=== PATIENT | female | born 2000 | race Two or more races ===

== ENCOUNTER 2024-10-09 10:16 | Outpatient (AMB) | payer BC, MEDICAID, SELFPAY ==
--- NOTE | 2024-10-09 10:19 | OBCLNT_ITS ---
Vital Signs 10/09/24 10:31 Height 1.65 m Height Method Measured Weight 69.57 kg Weight Measurement Method Standing Scale BMI 25.5 BP 106/71 Blood Pressure Source Automatic Cuff Blood Pressure Location Left Upper Arm Position Sitting Respiration 14 Pulse 76 Pulse Source Monitor Temp 97.8 F Temp Source Oral Pulse Oximetry (%) 98 Oxygen Delivery Method Room Air Allergies/Home Meds Allergies & Medications Allergies No Known Allergies Allergy (Verified 10/09/24 10:33) Medication Reconciliation vit no.133-ferrous fumarate 28 mg-folic acid 800 mcg tablet () 1 tab PO DAILY 02/26/22 [History Confirmed 10/09/24] Intake Visit Data Collection New Patient or Established: Established Patient (seen at [facility] within 3 years) Reason for Visit:: transfer care Seen by Clinical Staff ONLY (RN/MA): No [employer] Required: No Do You Feel Safe at Home: Yes Authorities Contacted: N/A PCP or OBGYN visit in last 3 months: Yes Hx Now: Yes Are you currently on any form of Control: No Last menstrual period: 04/08/24 Pain Present Currently: No Pain Scale Used: Joyner-Curiel/Numerical Pain scale:: 0 Smoking Status Smoking Status: Former smoker Questionnaires Covid-19 Vaccine Questionnaire Has patient been vacinated for Covid-19 Have you been vacinated for Covid-19: No PHQ-9 PHQ-2 Over the last 2 weeks, how often have you been bothered by any of the following problems? 1. Little interest or pleasure in doing things: not at all 2. Feeling down, depressed, or hopeless: not at all Total score: 0 PHQ-9 3. Trouble falling or staying asleep, or sleeping too much: Not at all 4. Feeling tired or having little energy: Not at all 5. Poor appetite or overeating: Not at all 6. Feeling bad about yourself - or that you are a failure or have let yourself or your family down: Not at all 7. Trouble concentrating on things, such as reading the newspaper or watching television: Not at all 8. Moving or speaking so slowly that other people could have noticed? - Or the opposite - being so fidgety or restless that you have been moving around a lot more than usual: not at all 9. Thoughts that you would be better off or of hurting yourself in some way: Not at all Total score: 0 Source: Developed by Drs. Joshua Swenson, Lenora Dye, Bradley Clarke and colleagues, with an educational nancy from [employer]. Depression screen completed yes Social History Living Situation History Lives With: Family Housing: Apartment Tobacco History Smoking Status: Former smoker Second Hand Smoke Exposure: Yes Alcohol History Alcohol Intake: Never Substance Use History Substance Use: marijuana Domestic Abuse History Do You Feel Safe at Home: Yes Past Medical History Past Medical History Have you ever been diagnosed with any of the following: Neurological Problems Cerebrovascular Accident (CVA): No Transient Ischemic Attacks (TIA): No Dementia: No Alzheimer's Disease: No Parkinson's Disease: No Brain Tumor: No Meningitis: No Seizures: No Cardiology Problems Myocardial Infarction: No Cardiac Arrhythmia: No Atrial Fibrillation: No Angina: No Congestive Heart Failure: No Respiratory Problems Chronic Obstructive Pulmonary Disease (COPD): No Asthma: No Bronchitis: No Emphysema: No Hx Cough: No Cough: No Wheezing: No Chest Deformities: No Smoking: Yes Smoking Cessation Counseling: No Smoking Exposure: Yes Tobacco Use: No Stomache/Intestinal Problems Liver Cancer: No Hepatitis: No Cirrhosis: No Pancreatic Cancer: No Pancreatitis: No Celiac Disease: No Genital/Urinary Problems Chronic Kidney Disease: No Renal Disease: No Reproductive Problems Breast Cancer: No Endometriosis: No Fibroids: No Genital Herpes: No Gonorrhea: No Pelvic Inflammatory Disease: No Musculoskeletal Problems Muscular Dystrophy: No Myasthenia Gravis: No Marfan's Syndrome: No Bone Cancer: No Head,Eye,Nose,Throat Problems Cataracts: No Glaucoma: No Blind: No Retinal Detachment: No Macular Degeneration: No Chronic Ear Infections: No Deafness: No Eye Prosthesis: No Endocrine Problems Diabetes Mellitus Type 1: No Diabetes Mellitus Type 2: No (grandfather) Chama's Syndrome: No Blood Problems Anemia: Yes Leukemia: No Hemophilia: No Thalassemia: No Sickle Cell Disease: No Clotting Problems: No Psychologic Problems Schizophrenia: No Recreational Drug Use: No Bipolar Disorder: No Depression: No Anxiety: No Other Problems Hospitalization: Yes Falls: No Blood Transfusions: No Blood Transfusion Reaction: No Anesthesia Reactions: No Chemotherapy: No MRSA: No Chicken Pox: No Cancer: No Surgical History Angioplasty: No Bariatric Surgery: No Breast Surgery: No Thyroidectomy: No Additional Surgical History: tosils removal History of Present Illness HPI Narrative 24-year-old 2 para 1 for [address] OB visit at [facility] Patient has been followed at [facility] for care. Her last menses was April 08, 2024. Sure dates. Patient had a positive test May 11, 2024. EDC is January 11, 2025. Patient is 26 weeks 5 days. Reports good movement. Denies any signs or symptoms of labor. Denies any discomforts of the at this time. No bleeding. No cramping. Patient denies social habits. She had her tonsils out. And denies any past or current medical history. Patient plans to sign for release of records at [facility] so we can get her panel and her ultrasound results her last maternal- medicine appointment was September [address] Jane. Thus far patient has not had any problems with OB Initial Visit OB Flowsheet OB Flowsheet Initial Weight: Not Recorded Date -?-?-?-?-?-?-?-?-?-?-?-?- EGA Weight Edema CTX Effacement BP Fundal ht Pres Dilation Effacement Station Visit Note Alb Glu FHR Mov 10/09/24 -?-?-?-?-?-?-?-?-?-?-?-?- 26w 2d 69.57 kg absent absent 106/71 26 unknown 24-year-old 2 1 here for initial OB appointment. Patient reports movement. Denies signs or sympt oms of labor. Patient is a transfer of care from [facility]. She we will going get her records. I ordered third trimester labs today. And will do a follow-up ultrasound for growth at 32 weeks. Patient is taking vitamins. I discussed labor precautions with patient and I discussed diet and weight and regular exercise. Patient had +1 protein today in the urine and +1 leuk but nitrites were negative so I advised her to drink cranberry juice and lots of fluids 24-year-old 2 1 here for ini tial OB appointment. Patient reports movement. Denies signs or symptoms of labor. Patient is a transfer of care from [facility]. 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 I ordered third trimester labs today. And will do a follow-up ultrasound for growth at 32 weeks. Patient is taking vitamins. I discussed labor precautions with patient and I discussed diet and weight and regular exercise. Patient had +1 protein today in the urine and +1 leuk but nitrites were negative so I advised her to drink cranberry juice and lots of fluids 156 active Menstrual History Menstrual reliability: definite Flow: heavy Menstrual regularity: regular Monthly: Yes Age at menarche: 14 On control pills at conception: No Date of positive home test: 05/11/24 Associated symptoms (LMP): Denies amenorrhea, nausea, vomiting, fatigue, breast tenderness, urinary frequency, irritability, bloating or other OB History : 2 Para: 1 # of Living Children: 1 Delivery History 1st : Child's name: LEONOR date: 02/27/22 sex: male Delivery type: vaginal Delivery complications: NONE History of depression before or after : No Infection History & Risk Evaluation History of STDs: chlamydia (2021) HIV risk evaluation: low risk Hepatitis B risk evaluation: low risk Patient or partner has history of Genital Herpes: No Genetic Screening & History Genetic Screening/Teratology Counseling - Includes patient, baby's father, or anyone in either family with: 1. Patient's age 35 years or older as of estimated date of delivery: No 2. Thalassemia (Gibraltarian, Belarusian, Mediterranean, or Background); MCV less than 80: No 3. Neural Tube Defect (Meningomyelocele, Spina Bifida, or Anencephaly): No 4. Congenital Heart Defect: No 5. Down Syndrome: No 6. Vlad-Sachs (Ashkenazi Latter Day, Cajun, Albanian Polish): No 7. Veronica Disease (Ashkenazi Latter Day): No 8. Familial Dysautonomia (Ashkenazi Latter Day): No 9. Sickle Cell Disease or Trait (): No 10. Hemophilia or other blood disorders: No 11. Muscular Dystrophy: No 12. Cystic Fibrosis: No 13. Hoang's Chorea: No 14. Mental Retardation/Autism: No 15. Other inherited genetic or chromosomal disorder: No 16. Maternal Metabolic Disorder (EG,TYPE 1 Diabetes, PKU): No 17. Patient or baby's father had a child with defects not listed above: No 18. Recurrent loss or a stillbirth: No 19. Medications (including supplements, vitamins, herbs or otc drugs)/illicit/recreational drugs/alcohol since last menstrual period: No 20. Any other: No Infection History 1. Live with someone with TB or exposed to TB: No 2. Rash or viral illness since last menstrual period: No 4. History of STD: chlamydia (2021) Other (see comments) Source: [employer] Review of Systems Review of Systems Systems Reviewed: All systems reviewed, normal except as documented Constitutional Constitutional: Denies fatigue Gastrointestinal Gastrointestinal: Denies bloating, Denies nausea and Denies vomiting Genitourinary Genitourinary: Denies amenorrhea and Denies urinary frequency Psychiatric Psychiatric: Denies irritability Endocrine Endocrine: Denies fatigue Exam General Limitations: no limitations General Appearance: alert, in no apparent distress, comfortable, cooperative, healthy appearing, well developed and well groomed Head Head exam: atraumatic, normocephalic and normal inspection Chest Chest inspection: Present normal inspection and symmetric chest wall rise Resp Respiratory exam: Present normal lung sounds bilaterally Card Cardiovascular exam: Present regular rate, normal rhythm and normal heart sounds Abdominal Abdominal exam: Present soft ([id number]) and normal bowel sounds Psych Psychiatric exam: Present normal affect and normal mood Assessment & Plan Diagnosis / Problem List (1) Encounter for supervision of normal in multigravida in second trimester: Status: Acute Plan Order third trimester labs. Follow-up ultrasound at 32 weeks for growth. Medical release of records for records and ultrasound. Discussed diet and weight with patient increased regular exercise. Increase fluids discussed labor precautions. Return in 3 weeks OB check Additional Plan Follow Up: 3 Weeks (OBC in 3 week) Office Procedures OB Clinic LOC & Office Proc's Nursing/Assessment Patient Status: Established Patient OB Clinic Nursing Assessment: Medication Reconciliation, Update PMH in EMR and Vital Signs OB Clinic Coordination of Care: Complex Care and Chronic Disease 1-5, Consent,records obtained, informed consent, Education Simp Pt/Fam, Lab and Imaging orders and Staff clarify orders Special Needs: Heart tones Miscellaneous Interventions: Blood/Urine Collection Established Patient Charge Established Patient Point Assignment: 160 Established Patient Point Charge: EP Level 5 (160-above)
[2024-10-09 10:31] VITALS: BP 106/71; PULSE 76; RESP 14; TEMP 36.6; O2SAT 98; BMI 25.5
== END 2024-10-09 11:15 | disposition home or self-care (01) ==
PROVIDERS: Supervising Provider Advanced Practice Midwife; Visit Provider Advanced Practice Midwife
DX: Z34.82 Encounter for supervision of other normal pregnancy, second trimester (principal); Z3A.26 26 weeks gestation of pregnancy
CPT/HCPCS: 99215; G0463

== ENCOUNTER 2024-11-06 10:52 | Outpatient (AMB) | payer BC, MEDICAID, SELFPAY ==
[2024-11-06 11:12] VITALS: BP 107/67; PULSE 82; RESP 16; TEMP 36.5; O2SAT 98; BMI 26.6
--- NOTE | 2024-11-06 11:12 | AMB.OBVISIT ---
Vital Signs 11/06/24 11:12 Height 1.65 m Height Method Stated Weight 72.631 kg Weight Measurement Method Standing Scale BMI 26.6 BP 107/67 Blood Pressure Source Automatic Cuff Blood Pressure Location Left Upper Arm Position Sitting Respiration 16 Pulse 82 Pulse Source Monitor Temp 97.7 F Temp Source Oral Pulse Oximetry (%) 98 Oxygen Delivery Method Room Air Allergies/Home Meds Allergies & Medications Allergies No Known Allergies Allergy (Verified 11/06/24 11:13) Medication Reconciliation vit no.133-ferrous fumarate 28 mg-folic acid 800 mcg tablet () 1 tab PO DAILY 02/26/22 [History Confirmed 11/06/24] Intake Visit Data Collection New Patient or Established: Established Patient (seen at [facility] within 3 years) Reason for Visit:: CARE Seen by Clinical Staff ONLY (RN/MA): No Shake Loader Required: No Do You Feel Safe at Home: Yes Authorities Contacted: N/A PCP or OBGYN visit in last 3 months: Yes Hx Now: Yes Are you currently on any form of Control: No Pain Present Currently: No Pain Scale Used: Joyner-Curiel/Numerical Pain scale:: 0 Smoking Status Smoking Status: Former smoker Questionnaires Covid-19 Vaccine Questionnaire Has patient been vacinated for Covid-19 Have you been vacinated for Covid-19: No PHQ-9 PHQ-2 Over the last 2 weeks, how often have you been bothered by any of the following problems? 1. Little interest or pleasure in doing things: not at all 2. Feeling down, depressed, or hopeless: not at all Total score: 0 PHQ-9 3. Trouble falling or staying asleep, or sleeping too much: Not at all 4. Feeling tired or having little energy: Not at all 5. Poor appetite or overeating: Not at all 6. Feeling bad about yourself - or that you are a failure or have let yourself or your family down: Not at all 7. Trouble concentrating on things, such as reading the newspaper or watching television: Not at all 8. Moving or speaking so slowly that other people could have noticed? - Or the opposite - being so fidgety or restless that you have been moving around a lot more than usual: not at all 9. Thoughts that you would be better off or of hurting yourself in some way: Not at all Total score: 0 Source: Developed by Drs. Joshua Swenson, Lenora Dye, Bradley Clarke and colleagues, with an educational nancy from [employer]. 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 Patient reports movement. Denies signs or symptoms of labor. Patient is a transfer of care from [facility]. She we will going get her records. I ordered third trimester labs today. And will do a follow-up ultrasound for growth at 32 weeks. Patient is taking vitamins. I discussed labor precautions with patient and I discussed diet and weight and regular exercise. Patient had +1 protein today in the urine and +1 leuk but nitrites were negative so I advised her to drink cranberry juice and lots of fluids 24-year-old 2 1 here for initial OB appointment. Patient reports movement. Denies signs or symptoms of labor. Patient is a transfer of care from [facility]. 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 I ordered third trimester labs today. And will do a follow-up ultrasound for growth at 32 weeks. Patient is taking vitamins. I discussed labor precautions with patient and I discussed diet and weight and regular exercise. Patient had +1 protein today in the urine and +1 leuk but nitrites were negative so I advised her to drink cranberry juice and lots of fluids 156 active 11/06/24 <del>?</del> 30w 2d 72.631 kg absent absent 107/67 30 unknown Reports good movement. Denies any contractions. No leaking, no bleeding. Tdap given today. Schedule ultrasound for growth. I reviewed diet and weight gain with patient and talked about kick count. Return in 2 weeks OB check. 156 active FABIAN Calculator Estimated Delivery Date Method Current WG Current Estimate 01/13/25 LMP (Certain) 30w 2d Notes Visit Date: 11/06/24 Last Updated by: Ashely Araiza CNM 24yo . LMP 04/03/24. EDC 01/08/25. A+,abs-,rpr;;nr, rub imm. HBSAG-,HIV-,GC/CT-,NIPT and carrier screen- Office Procedures OB Clinic LOC & Office Proc's Nursing/Assessment Patient Status: Established Patient OB Clinic Nursing Assessment: Medication Reconciliation, Update PMH in EMR and Vital Signs OB Clinic Coordination of Care: Complex Care and Chronic Disease 1-5, Consent,records obtained, informed consent, Education Simp Pt/Fam, Lab and Imaging orders, Results/Orders obtained and Staff clarify orders Special Needs: Heart tones Miscellaneous Interventions: Blood/Urine Collection Established Patient Charge Established Patient Point Assignment: 165 Established Patient Point Charge: EP Level 5 (160-above) Injection/Vaccine Admin Admin 1st Vaccine: Yes Immunizations diphth,pertus(acell),tetanus 2.5 Lf unit-8 mcg-5 Lf/0.5mL IM syringe Performing Provider: Ashely Araiza CNM Performing Location: [facility] Administered by: Chelsea Rodriguez MA on 11/06/24 11:35 Dose Route Admin Location Dispensed Lot Number Expiration Date [facility] [employer]sman 0.5 mL IM Right Deltoid 0.5 mL [id number] 12/06/26 33789-231-20 [employer] VIS Given Date VIS Provided VIS Publication Date 11/06/24 Single Vaccine 24 Eligibility Eligibility Date Funding Source Public Non-[facility] Assessment & Plan Diagnosis / Problem List (1) Encounter for supervision of normal in multigravida in second trimester: Status: Acute Plan Tdap today. Discussed diet and weight. Reviewed labor precautions with patient. Discussed kick count with patient. Ultrasound for growth. And return in 2 weeks OB check Additional Plan Follow Up: 2 Weeks (obc)
[2024-11-06 12:51] LABS: Bilirubin,Urine Clinitek Negative (Negative); Blood,Urine Clinitek Negative (Negative); Glucose, Urine Clinitek Negative (Negative); Ketones,Urine Clinitek Negative (Negative); Leukocyte Esterase,Urine Clin 3+ (Negative); Nitrite,Urine Clinitek Negative (Negative); Protein,Urine Clinitek Negative (Neg - Trace); Specific Gravity,Urine Clin 1.025 (1.001-1.030)
== END 2024-11-06 12:01 | disposition home or self-care (01) ==
LOC: HODSOBC 10:52
PROVIDERS: PCP Advanced Practice Midwife; Referring Provider Advanced Practice Midwife; Supervising Provider Advanced Practice Midwife; Visit Provider Advanced Practice Midwife
DX: Z34.83 Encounter for supervision of other normal pregnancy, third trimester (principal); Z3A.30 30 weeks gestation of pregnancy; Z23 Encounter for immunization; Z87.891 Personal history of nicotine dependence
CPT/HCPCS: 81001; 90471; 90715; 99215; G0463

== ENCOUNTER 2024-11-19 11:13 | Outpatient (AMB) | payer BC, MEDICAID, SELFPAY ==
[2024-11-19 11:26] VITALS: BP 110/72; PULSE 83; RESP 17; TEMP 36.5; O2SAT 98; BMI 29.5
--- NOTE | 2024-11-19 11:26 | AMB.OBVISIT ---
Vital Signs 11/19/24 11:26 Height 1.57 m Height Method Stated Weight 73.198 kg Weight Measurement Method Standing Scale BMI 29.5 BP 110/72 Blood Pressure Source Automatic Cuff Blood Pressure Location Right Upper Arm Position Sitting Respiration 17 Pulse 83 Pulse Source Monitor Temp 97.7 F Temp Source Temporal Artery Scan Pulse Oximetry (%) 98 Oxygen Delivery Method Room Air Allergies/Home Meds Allergies & Medications Allergies No Known Allergies Allergy (Verified 11/19/24 11:28) Medication Reconciliation ferrous sulfate 325 mg (65 mg iron) tablet 325 mg PO BID #60 tabs 11/19/24 [Rx] vit no.133-ferrous fumarate 28 mg-folic acid 800 mcg tablet () 1 tab PO DAILY #60 tabs 11/19/24 [Rx] Intake Visit Data Collection New Patient or Established: Established Patient (seen at [facility] within 3 years) Reason for Visit:: OBC Seen by Clinical Staff ONLY (RN/MA): No 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 1. Little interest or pleasure in doing things: not at all PHQ-9 3. Trouble falling or staying asleep, or sleeping too much: Not at all 4. Feeling tired or having little energy: Not at all 5. Poor appetite or overeating: Not at all 6. Feeling bad about yourself - or that you are a failure or have let yourself or your family down: Not at all 7. Trouble concentrating on things, such as reading the newspaper or watching television: Not at all 8. Moving or speaking so slowly that other people could have noticed? - Or the opposite - being so fidgety or restless that you have been moving around a lot more than usual: not at all 9. Thoughts that you would be better off or of hurting yourself in some way: Not at all If you checked off any problems, how difficult have these problems made it for you to do your work, take care of things at home, or get along with other people?: not difficult at all Source: Developed by Drs. Joshua Swenson, Lenora Dye, Bradley Clarke and colleagues, with an educational nancy from [employer]. 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 Patient reports movement. Denies signs or symptoms of labor. Patient is a transfer of care from [facility]. She we will going get her records. I ordered third trimester labs today. And will do a follow-up ultrasound for growth at 32 weeks. Patient is taking vitamins. I discussed labor precautions with patient and I discussed diet and weight and regular exercise. Patient had +1 protein today in the urine and +1 leuk but nitrites were negative so I advised her to drink cranberry juice and lots of fluids 24-year-old 2 1 here for initial OB appointment. Patient reports movement. Denies signs or symptoms of labor. Patient is a transfer of care from [facility]. 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 I ordered third trimester labs today. And will do a follow-up ultrasound for growth at 32 weeks. Patient is taking vitamins. I discussed labor precautions with patient and I discussed diet and weight and regular exercise. Patient had +1 protein today in the urine and +1 leuk but nitrites were negative so I advised her to drink cranberry juice and lots of fluids 11/06/24 <del>?</del> 30w 2d 72.631 kg 107/67 absent unknown 30 156 active Reports good movement. Denies any contractions. No leaking, no bleeding. Tdap given today. Schedule ultrasound for growth. I reviewed diet and weight gain with patient and talked about kick count. Return in 2 weeks OB check. 11/19/24 <del>?</del> 32w 1d 73.198 kg 110/72 absent cephalic 32 135 active No OB complaints, fetus active, . compliant with PNV discuss PTL precaution, discuss FKC biD. Increase fluid, continue PNV, RTC 1 week, sono for growth pending, start iron bid FABIAN Calculator Estimated Delivery Date Method Current WG Current Estimate 01/13/25 LMP (Certain) 32w 1d Notes Visit Date: 11/19/24 Last Updated by: Ashely Araiza CNM #rd tri labs WNL. 04/24 Visit Date: 11/06/24 Last Updated by: Ashely Araiza CNM 24yo . LMP 04/03/24. EDC 01/08/25. A+,abs-,rpr;;nr, rub imm. HBSAG-,HIV-,GC/CT-,NIPT and carrier screen- Office Procedures OB Clinic LOC & Office Proc's Nursing/Assessment Patient Status: Established Patient OB Clinic Nursing Assessment: Medication Reconciliation, Update PMH in EMR and Vital Signs OB Clinic Coordination of Care: Complex Care and Chronic Disease 1-5, Consent,records obtained, informed consent, Education Simp Pt/Fam and Staff clarify orders Special Needs: Heart tones Established Patient Charge Established Patient Point Assignment: 115 Established Patient Point Charge: EP Level 3 (80-115) Assessment & Plan Diagnosis / Problem List (1) Encounter for supervision of normal in multigravida in third trimester: Status: Acute Plan start iron bid and iron food. continue PNV, increase fluid. discuss PTL precaution, fkc bid. sono for growth pending. rtcm2 week obc Additional Plan Follow Up: 2 Weeks (obc)
== END 2024-11-19 11:46 | disposition home or self-care (01) ==
LOC: HODSOBC 11:13
PROVIDERS: PCP Advanced Practice Midwife; Referring Provider Advanced Practice Midwife; Supervising Provider Advanced Practice Midwife; Visit Provider Advanced Practice Midwife
DX: Z34.83 Encounter for supervision of other normal pregnancy, third trimester (principal); Z3A.32 32 weeks gestation of pregnancy; Z87.891 Personal history of nicotine dependence
CPT/HCPCS: 99213; G0463

== ENCOUNTER 2024-12-09 12:57 | Outpatient (AMB) | payer BC, MEDICAID, SELFPAY ==
[2024-12-09 13:28] VITALS: BP 116/80; PULSE 74; RESP 17; TEMP 36.7; O2SAT 98; BMI 30.5
--- NOTE | 2024-12-09 13:28 | OBCLNT_ITS ---
Vital Signs 12/09/24 13:28 Height 1.57 m Height Method Stated Weight 75.353 kg Weight Measurement Method Standing Scale BMI 30.5 BP 116/80 Blood Pressure Source Automatic Cuff Blood Pressure Location Right Upper Arm Position Sitting Respiration 17 Pulse 74 Pulse Source Monitor Temp 98.0 F Temp Source Temporal Artery Scan Pulse Oximetry (%) 98 Oxygen Delivery Method Room Air Allergies/Home Meds Allergies & Medications Allergies No Known Allergies Allergy (Verified 12/09/24 13:29) Medication Reconciliation ferrous sulfate 325 mg (65 mg iron) tablet 325 mg PO BID #60 tabs 11/19/24 [Rx Confirmed 12/09/24] vit no.133-ferrous fumarate 28 mg-folic acid 800 mcg tablet () 1 tab PO DAILY #60 tabs 11/19/24 [Rx Confirmed 12/09/24] Intake Visit Data Collection New Patient or Established: Established Patient (seen at [facility] within 3 years) Reason for Visit:: OBC / GBS Seen by Clinical Staff ONLY (RN/MA): No Data Integrity Analyst Required: No Do You Feel Safe at Home: Yes Authorities Contacted: N/A PCP or OBGYN visit in last 3 months: Yes Date of Last PCP or OBGYN visit: 11/16/24 Hx Now: Yes Are you currently on any form of Control: No Pain Present Currently: Yes Pain Location: Groin Pain Scale Used: Joyner-Curiel/Numerical Pain scale:: 7 Smoking Status Smoking Status: Former smoker Questionnaires Covid-19 Vaccine Questionnaire Has patient been vacinated for Covid-19 Have you been vacinated for Covid-19: No PHQ-9 PHQ-2 Over the last 2 weeks, how often have you been bothered by any of the following problems? 1. Little interest or pleasure in doing things: not at all 2. Feeling down, depressed, or hopeless: not at all Total score: 0 PHQ-9 3. Trouble falling or staying asleep, or sleeping too much: Not at all 4. Feeling tired or having little energy: Not at all 5. Poor appetite or overeating: Not at all 6. Feeling bad about yourself - or that you are a failure or have let yourself or your family down: Not at all 7. Trouble concentrating on things, such as reading the newspaper or watching television: Not at all 8. Moving or speaking so slowly that other people could have noticed? - Or the opposite - being so fidgety or restless that you have been moving around a lot more than usual: not at all 9. Thoughts that you would be better off or of hurting yourself in some way: Not at all Total score: 0 If you checked off any problems, how difficult have these problems made it for you to do your work, take care of things at home, or get along with other people?: not difficult at all Source: Developed by Drs. Joshua Swenson, Lenora Dye, Bradley Clarke and colleagues, with an educational nancy from [employer]. 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: Past Medical History Past Medical History: No Hx Neurological Disorders, No Hx Breast Cancer, No Hx Cardiac Disorders, No Hx Cancer, Yes Hx Blood Disorders, Yes Hx Anemia, No Hx Gastrointestinal Disorders, No Hx Renal Disease, No Hx Diabetes Mellitus Type 1 and No Hx Diabetes Mellitus Type 2 (grandfather) Care OB Visit Log OB Flowsheet Initial Weight: Not Recorded Date -?-?-?-?-?-?-?-?-?-?-?-?- EGA Weight BP Alb Glu CTX Pres Fundal ht FHR Mov Dilation Station Effacement Hx Notes Visit Note 10/09/24 -?-?-?-?-?-?-?-?-?-?-?-?- 27w 5d 69.57 kg 106/71 absent unknown 26 156 active 24-year-old 2 1 here for initial OB appointment. Patient reports movement. Denies signs or symptoms of labor. Patient is a transfer of care from [facility]. She we will going get her records. I ordered third trimester labs today. And will do a follow-up ultrasound for growth at 32 weeks. Patient is taking vitamins. I discussed labor precautions with patient and I discussed diet and weight and regular exercise. Patient had +1 protein today in the urine and +1 leuk but nitrites were negative so I advised her to drink cranberry juice and lots of fluids 24-year-old 2 1 here for jacob shukla OB appointment. Patient reports movement. Denies signs or symptoms of labor. Patient is a transfer of care from [facility]. 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 I ordered third trimester labs today. And will do a follow-up ultrasound for growth at 32 weeks. Patient is taking vitamins. I discussed labor precautions with patient and I discussed diet and weight and regular exercise. Patient had +1 protein today in the urine and +1 leuk but nitrites were negative so I advised her to drink cranberry juice and lots of fluids 11/06/24 -?-?-?-?-?-?-?-?-?-?-?-?- 31w 5d 72.631 kg 107/67 absent unknown 30 156 active Reports good movement. Denies any contractions. No leaking, no bleeding. Tdap given today. Schedule ultrasound for growth. I reviewed diet and weight gain with patient and talked about kick count. Return in 2 weeks OB check. 11/19/24 -?-?-?-?-?-?-?-?-?-?-?-?- 33w 4d 73.198 kg 110/72 absent cephalic 32 135 active No OB complaints, fetus active, . compliant with PNV discuss PTL precaution, discuss FKC biD. Increase fluid, continue PNV, RTC 1 week, sono for growth pending, start iron bid 12/09/24 -?-?-?-?-?-?-?-?-?-?-?-?- 36w 3d 75.353 kg 116/80 occasional cephalic 36 135 active occ uc and pressure. denies bleeding, UC and LOF. fetus active GBS today. discuss labor precaution, fkc bid discuss ER precaution. rtc for OBC FABIAN Calculator Estimated Delivery Date Method Current WG Current Estimate 01/03/25 Ultrasound #1 36w 3d Other Estimates 01/13/25 LMP (Certain) 35w 0d Notes Visit Date: 12/09/24 Last Updated by: Ashely Araiza CNM 24 yo . LMP 04/03/24. EDC 12/29/24. A+,abs-, rpr;;nr, rub imm, hbsag-, hiv-, hc-, GC/CT-, 1 hr gtt wnl Visit Date: 11/19/24 Last Updated by: Ashely Araiza CNM #rd tri labs WNL. 04/24 Visit Date: 11/06/24 Last Updated by: Ashely Araiza CNM 24yo . LMP 04/03/24. EDC 01/08/25. A+,abs-,rpr;;nr, rub imm. HBSAG-,HIV-,GC/CT-,NIPT and carrier screen- Office Procedures OB Clinic LOC & Office Proc's Nursing/Assessment Patient Status: Established Patient OB Clinic Nursing Assessment: Medication Reconciliation, Update PMH in EMR and Vital Signs OB Clinic Coordination of Care: Complex Care and Chronic Disease 1-5, Consent,records obtained, informed consent, Education Simp Pt/Fam, Lab and Imaging orders and Staff clarify orders Special Needs: Heart tones Established Patient Charge Established Patient Point Assignment: 130 Established Patient Point Charge: EP Level 4 (120-155) Assessment & Plan Diagnosis / Problem List (1) Encounter for supervision of normal in multigravida in third trimester: Status: Acute Plan GBS today, discuss labor precaution, fkc bid, discuss s/s of labor and when to go to hospital. discuss ER precaution Additional Plan Follow Up: 2 Weeks (obc)
== END 2024-12-09 14:27 | disposition home or self-care (01) ==
LOC: HODSOBC 12:57
PROVIDERS: PCP Advanced Practice Midwife; Referring Provider Advanced Practice Midwife; Supervising Provider Advanced Practice Midwife; Visit Provider Advanced Practice Midwife
DX: Z34.83 Encounter for supervision of other normal pregnancy, third trimester (principal); Z3A.36 36 weeks gestation of pregnancy; Z36.85 Encounter for antenatal screening for Streptococcus B; Z87.891 Personal history of nicotine dependence
CPT/HCPCS: 99214; G0463

== ENCOUNTER 2024-12-31 15:26 | Outpatient (AMB) | payer BC, MEDICAID, SELFPAY ==
[2024-12-31 15:31] VITALS: BP 119/81; PULSE 107; RESP 17; TEMP 36.6; O2SAT 98; BMI 31.8
--- NOTE | 2024-12-31 15:31 | AMB.OBVISIT ---
Vital Signs 12/31/24 15:31 Height 1.57 m Height Method Measured Weight 78.528 kg Weight Measurement Method Standing Scale BMI 31.8 BP 119/81 Blood Pressure Source Automatic Cuff Blood Pressure Location Right Upper Arm Position Sitting Respiration 17 Pulse 107 H Pulse Source Monitor Temp 97.9 F Temp Source Temporal Artery Scan Pulse Oximetry (%) 98 Oxygen Delivery Method Room Air Allergies/Home Meds Allergies & Medications Allergies No Known Allergies Allergy (Verified 12/31/24 15:32) Medication Reconciliation ferrous sulfate 325 mg (65 mg iron) tablet 325 mg PO BID #60 tabs 11/19/24 [Rx Confirmed 12/31/24] vit no.133-ferrous fumarate 28 mg-folic acid 800 mcg tablet () 1 tab PO DAILY #60 tabs 11/19/24 [Rx Confirmed 12/31/24] fluconazole 150 mg tablet 150 mg PO QDAY 3 days #3 tabs 12/31/24 [Rx] Intake Visit Data Collection New Patient or Established: Established Patient (seen at [facility] within 3 years) Reason for Visit:: OBC Consent obtained for Telemed Visit: No Seen by Clinical Staff ONLY (RN/MA): No Associate Producer Required: No Do You Feel Safe at Home: Yes Authorities Contacted: N/A PCP or OBGYN visit in last 3 months: Yes Date of Last PCP or OBGYN visit: 12/09/24 Hx Now: Yes Are you currently on any form of Control: No Pain Present Currently: Yes Pain scale:: 6 Smoking Status Smoking Status: Former smoker Questionnaires Covid-19 Vaccine Questionnaire Has patient been vacinated for Covid-19 Have you been vacinated for Covid-19: No PHQ-9 PHQ-2 Over the last 2 weeks, how often have you been bothered by any of the following problems? 1. Little interest or pleasure in doing things: not at all PHQ-9 8. Moving or speaking so slowly that other people could have noticed? - Or the opposite - being so fidgety or restless that you have been moving around a lot more than usual: not at all Source: Developed by Drs. Joshua Swenson, Lenora Dye, Bradley Clarke and colleagues, with an educational nancy from [employer]. 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 Patient reports movement. Denies signs or symptoms of labor. Patient is a transfer of care from [facility]. She we will going get her records. I ordered third trimester labs today. And will do a follow-up ultrasound for growth at 32 weeks. Patient is taking vitamins. I discussed labor precautions with patient and I discussed diet and weight and regular exercise. Patient had +1 protein today in the urine and +1 leuk but nitrites were negative so I advised her to drink cranberry juice and lots of fluids 24-year-old 2 1 here for initial OB appointment. Patient reports movement. Denies signs or symptoms of labor. Patient is a transfer of care from [facility]. 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 I ordered third trimester labs today. And will do a follow-up ultrasound for growth at 32 weeks. Patient is taking vitamins. I discussed labor precautions with patient and I discussed diet and weight and regular exercise. Patient had +1 protein today in the urine and +1 leuk but nitrites were negative so I advised her to drink cranberry juice and lots of fluids 11/06/24 <del>?</del> 30w 6d 72.631 kg 107/67 absent unknown 30 156 active Reports good movement. Denies any contractions. No leaking, no bleeding. Tdap given today. Schedule ultrasound for growth. I reviewed diet and weight gain with patient and talked about kick count. Return in 2 weeks OB check. 11/19/24 <del>?</del> 32w 5d 73.198 kg 110/72 absent cephalic 32 135 active No OB complaints, fetus active, . compliant with PNV discuss PTL precaution, discuss FKC biD. Increase fluid, continue PNV, RTC 1 week, sono for growth pending, start iron bid 12/09/24 <del>?</del> 35w 4d 75.353 kg 116/80 occasional cephalic 36 135 active occ uc and pressure. denies bleeding, UC and LOF. fetus active GBS today. discuss labor precaution, fkc bid discuss ER precaution. rtc for OBC 12/31/24 <del>?</del> 38w 5d 78.528 kg 119/81 occasional cephalic 38 135 active fetus active, denies uc, no leaking or bleeding. SVE: LCP/soft, + yeast. Discuss dates with patient, IOL 01/10/25 GBS-, + yeast. diflucan 150 x3, discuss labor precaution, fkc bid, increase fluids. IOL 01/10/25, fkc bid FABIAN Calculator Estimated Delivery Date Method Current WG Current Estimate 01/09/25 Ultrasound #2 38w 5d Other Estimates 01/08/25 LMP (Certain) 38w 6d 01/08/25 Ultrasound #1 38w 6d Notes Visit Date: 12/09/24 Last Updated by: Ashely Araiza CNM 24 yo . LMP 04/03/24. EDC 12/29/24. A+,abs-, rpr;;nr, rub imm, hbsag-, hiv-, hc-, GC/CT-, 1 hr gtt wnl Visit Date: 11/19/24 Last Updated by: Ashely Araiza CNM #rd tri labs WNL. 04/24 Visit Date: 11/06/24 Last Updated by: Ashely Araiza CNM 24yo . LMP 04/03/24. EDC 01/08/25. A+,abs-,rpr;;nr, rub imm. HBSAG-,HIV-,GC/CT-,NIPT and carrier screen- Office Procedures OB Clinic LOC & Office Proc's Nursing/Assessment Patient Status: Established Patient OB Clinic Nursing Assessment: Medication Reconciliation, Update PMH in EMR and Vital Signs OB Clinic Coordination of Care: Complex Care and Chronic Disease 1-5, Education Complex Pt/Fam, Consent,records obtained, informed consent, Education Simp Pt/Fam and Staff clarify orders Special Needs: Heart tones Established Patient Charge Established Patient Point Assignment: 135 Established Patient Point Charge: EP Level 4 (120-155) Assessment & Plan Diagnosis / Problem List (1) Chronic candidiasis of vulva and vagina: Status: Acute (2) Encounter for supervision of normal in multigravida in third trimester: Status: Acute Plan Discussed GBS and new swab results. Diflucan 150 p.o. daily x 3 days for positive yeast infection. Discussed labor precautions and kick counts twice a day. Increase fluids and comfort measures for prodromal labor. Schedule induction of labor January 10, 2025 Additional Plan Follow Up: 1 Week (obc)
== END 2024-12-31 15:53 | disposition home or self-care (01) ==
LOC: HODSOBC 15:26
PROVIDERS: Supervising Provider Advanced Practice Midwife; Visit Provider Advanced Practice Midwife
DX: O09.893 Supervision of other high risk pregnancies, third trimester (principal); O98.813 Other maternal infectious and parasitic diseases complicating pregnancy, third trimester; B37.32 Chronic candidiasis of vulva and vagina; Z3A.38 38 weeks gestation of pregnancy
CPT/HCPCS: 99214; G0463

== ENCOUNTER 2025-01-05 13:02 | Observation (INO) | payer BC, MEDICAID, SELFPAY ==
[2025-01-05] VITALS (9 sets, daily range): BP systolic 104–105; BP diastolic 71–74; PULSE 86–114; RESP 18–97; TEMP 37.1; O2SAT 97–99; BMI 31.2
== END 2025-01-05 17:00 | disposition home or self-care (01) ==
PROVIDERS: Admitting Provider Obstetrics & Gynecology; PCP Advanced Practice Midwife; Visit Provider Obstetrics & Gynecology
DX: Z34.83 Encounter for supervision of other normal pregnancy, third trimester (principal); Z3A.39 39 weeks gestation of pregnancy
CPT/HCPCS: 59025; 59899

== ENCOUNTER 2025-01-05 22:18 | Inpatient (IN) | payer BC, MEDICAID, SELFPAY ==
[2025-01-05] VITALS (22 sets, daily range): BP systolic 102–174; BP diastolic 54–85; PULSE 85–116; RESP 18–99; TEMP 36.8–36.9; O2SAT 93–100; BMI 31.6
[2025-01-05] MEDS: RINGERS LACTATED 1000 ML 1,000 ML 125 ML IV (23:15)
[2025-01-05 23:41] LABS: Basophils # (Auto) 0.0 Thou/mm3 (0.0-0.2); Basophils % (Auto) 0 % (0-2.5); Eosinophils # (Auto) 0.1 Thou/mm3 (0.0-0.5); Eosinophils % (Auto) 1 % (0-10); Hematocrit 27.9 % (36.0-46.0); Hemoglobin 9.3 g/dL (12.0-16.0); Immature Granulocytes Auto 0.06 Thou/mm3 (0.00-0.00); Lymphocytes # (Auto) 1.8 Thou/mm3 (1.0-4.8); Lymphocytes % (Auto) 15 % (10-50); Mean Corpuscular HGB Conc 33.3 g/dl (31.0-37.0); Mean Corpuscular Hemoglobin 24.3 pg (25.0-35.0); Mean Corpuscular Volume 73 fL (80-100); Monocytes # (Auto) 1.0 Thou/mm3 (0.0-0.8); Monocytes % (Auto) 8 % (0-12); Neutrophils # (Auto) 8.9 Thou/mm3 (1.8-7.7); Neutrophils % (Auto) 75 % (37-80); Nucleated Red Blood Cell # 0.00 Thou/mm3 (0.00-0.00); Nucleated Red Blood Cell % 0 /100 WBC (0); Platelet Count 457 Thou/mm3 (140-440); RDW Standard Deviation 43.8 fL (36.4-46.3); Red Blood Count 3.82 Miln/mm3 (4.00-5.20); White Blood Count 11.8 Thou/mm3 (3.6-11.0)
[2025-01-06] VITALS (206 sets, daily range): BP systolic 105–203; BP diastolic 48–123; PULSE 49–142; RESP 16–18; TEMP 36.8–37.9; O2SAT 84–100
[2025-01-06 00:22] LABS: Syphilis Nonreactive (Nonreactive)
[2025-01-06] MEDS: fentaNYL CIT INJ 50 mCg/ML AMP 2ML 100 MCG IVP ×2 (03:21→04:42)
[2025-01-06] MEDS: ACETAMINOPHEN IVPB 1,000 MG/100 ML VIAL 250 MG IV ×2 (03:34→11:57)
[2025-01-06] MEDS: OXYTOCIN in NS 30 units 30 UNIT/500 ML BAG IV (04:41)
[2025-01-06] MEDS: OXYTOCIN in NS 30 units 30 UNIT/500 ML BAG 4 UNIT IV (05:41)
--- NOTE | 2025-01-06 05:44 | PD.LDPN ---
Documentation for date of: 01/06/25 OB Labor Progress Note Pain Control Pain control: tolerating well and epidural Pelvic Exam Dilation (cm): 5 Effacement (%): 80 station: -2 Amniotic membrane status: Ruptured Contractions Monitor mode: External Contraction frequency: 1-5 Contraction duration: 30 Contraction phase: Resting Contraction intensity: Moderate Status status: Category l Assessment and Plan Pitocin rate (mU/min): 1 Assessment: active labor Plan OB labor note: begin Pitocin augmentation CNM Management MD Consulted (describe details below): Yes
--- NOTE | 2025-01-06 05:45 | PD.LDHP ---
Documentation for date of: 01/06/25 OB Labor/Induct. HPI History of Present Illness Chief complaint: labor : 2 Para: 1 Term pregnancies: 1 pregnancies: 0 Living children: 1 History of Abortions: Spontaneous and Elective: 0 History of Vaginal deliveries: 1 History of sections: No History of : No Date of last menstrual period: 04/03/24 FABIAN: 01/08/25 Gestational Age (weeks): 39 Gestational Age (days): 4 Gestational age based on last menstrual period: 39 History of present illness: 24-year-old 2 para 1 with complaints of contractions admitted to labor and delivery. Patient has been followed both at [facility] and [facility]. Last. April 03, 2024. Estimated due date January 08, 2025. Patient has had an uneventful . She has had several ultrasound sound showing a normal anatomy. Patient is A+, antibody screen negative, RPR nonreactive, rubella, hepatitis B negative, hep C negative, HIV negative, GC and Chlamydia are negative. Her 1 hour was normal. GBS negative. She had negative NIPT and carrier screens. Denies social habits. Denies surgery. Denies chronic illness. History of Present Dating criteria: LMP confirmed by 1st trimester US Adequate Care: Yes Ultrasounds: normal 1st trimester US and normal mid trimester US Obstetrical complications: none Labs Labs: Positive: Rubella Titre, Negative: RPR, Hepatitis B, HIV, Chlamydia, Gonorrhea and Group Beta Strep and Unknown: Herpes Type 1, Herpes Type 2 and Covid-19 Review of Systems Review of Systems Systems Reviewed: All systems reviewed, normal except as documented Past Medical History Surgical History SURGICAL: Negative Section Meds Home Medications and Allergies Allergies Allergy/AdvReac Type Severity Reaction Status Date / Time No Known Allergies Allergy Verified 01/05/25 23:21 OB Exam Physical Exam Vital signs: Temp Pulse Resp BP Pulse Ox 98.3 F 112 H 18 122/90 H 96 01/05/25 23:44 01/06/25 05:20 01/05/25 22:49 01/06/25 05:20 01/06/25 05:43 Narrative: Alert and oriented. Normal heart rate and rhythm. Lungs clear no wheezes. Gravid abdomen. Gynecoid pelvis. Estimated weight 7 pounds 10 ounces. Vaginal exam on admission was 80%, 4, -2. Vertex. Bag water intact. heart rate category 1 with accelerations and moderate variability and contractions were about every 2 to 5 minutes Detailed Labor and Delivery Exam Dilation (cm): 4 Effacement (%): 80 Cervix position: mid station: -2 Consistency: soft Presentation: Vertex Cervical ripeness score: 8 Membranes: intact Baseline heart rate: 145 monitor accelerations: 15x15 monitor decelerations: None terminal operator variability: Moderate (11-25) Contraction frequency (min): 2-5 Contraction duration (sec): 30 Tachysystole: No Contraction intensity: Moderate OB Results Labs 01/05/25 23:17 Labs: Short CBC 01/05/25 Range/Units 23:17 WBC 11.8 H (3.6-11.0) Thou/mm3 Hgb 9.3 L (12.0-16.0) g/dL Hct 27.9 L (36.0-46.0) % Plt Count 457 H (140-440) Thou/mm3 OB Assessment & Plan Additional Plan Induction method: none Plan: augmentation, anticipate NVD and consult MD page
[2025-01-06] MEDS: OXYTOCIN INJ 10 UNIT/ML VIAL IM (09:45)
[2025-01-06] MEDS: OXYTOCIN in NS 20 units 20 UNIT/1,000 ML BAG 125 UNIT IV (09:48)
--- NOTE | 2025-01-06 10:14 | PD.LDDELS ---
Data ([place]) Data Hx Section: No : 2 Term: 1 : 0 Livin Abortions: Spontaneous & Theraputic: 0 Delivery Data ([place]) Labor Data Initiation of labor: Spontaneous Induction/Augmentation Agent: None ROM date: 01/06/25 ROM time: 05:16 Amniotic membrane rupture type: Artificial Amniotic fluid description: Clear Delivery Data Date of arrival to unit: 01/05/25 Time of arrival to unit: 22:18 Onset of labor date: 01/06/25 Onset of labor time: 03:00 Complete dilation date: 01/06/25 Complete dilation time: 09:38 [place] delivery date: 01/06/25 [place] delivery time: 09:44 Gestational age (weeks): 39 Gestational age (days): 5 Placenta delivery date: 01/06/25 Placenta delivery time: 09:49 Stage 1 total time: Labor - Stage 1 Duration 6 hours and 38 minutes Delivered by: Ashely Araiza 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
[2025-01-06] MEDS: TRANEXAMIC ACID 1,000 MG IVPB 1,000 MG/100 ML BAG 200 MG IV (10:15)
[2025-01-06] MEDS: Ampicillin Inj 2,000 MG in SODIUM CHLORIDE 0.9% (POP) 100 ML 100 MG IV ×3 (12:15→21:28)
[2025-01-06] MEDS: SODIUM CHLORIDE 0.9% 1000 ML 1,000 ML 125 ML IV (12:16)
[2025-01-06] MEDS: GENTAMICIN/NS 80 MG IVPB 80 MG in PRE-MIXED 1 BAG 50 MG IV ×2 (13:54→22:36)
[2025-01-06 18:29] LABS: Basophils # (Auto) 0.0 Thou/mm3 (0.0-0.2); Basophils % (Auto) 0 % (0-2.5); Eosinophils # (Auto) 0.0 Thou/mm3 (0.0-0.5); Eosinophils % (Auto) 0 % (0-10); Hematocrit 27.0 % (36.0-46.0); Immature Granulocytes Auto 0.11 Thou/mm3 (0.00-0.00); Lymphocytes # (Auto) 1.6 Thou/mm3 (1.0-4.8); Lymphocytes % (Auto) 10 % (10-50); Mean Corpuscular HGB Conc 32.2 g/dl (31.0-37.0); Mean Corpuscular Hemoglobin 23.7 pg (25.0-35.0); Mean Corpuscular Volume 74 fL (80-100); Monocytes # (Auto) 1.2 Thou/mm3 (0.0-0.8); Monocytes % (Auto) 7 % (0-12); Neutrophils # (Auto) 13.3 Thou/mm3 (1.8-7.7); Neutrophils % (Auto) 82 % (37-80); Nucleated Red Blood Cell # 0.00 Thou/mm3 (0.00-0.00); Nucleated Red Blood Cell % 0 /100 WBC (0); Platelet Count 354 Thou/mm3 (140-440); RDW Standard Deviation 44.4 fL (36.4-46.3); Red Blood Count 3.67 Miln/mm3 (4.00-5.20); White Blood Count 16.2 Thou/mm3 (3.6-11.0)
[2025-01-06 19:13] LABS: Hemoglobin 8.7 g/dL (12.0-16.0)
[2025-01-06] MEDS: FERRIC SOD GLUC INJ 125 MG in SODIUM CHLORIDE 0.9% 100 ML 110 MG IV (20:01)
[2025-01-06] MEDS: IBUPROFEN TAB 400 MG TABLET 800 MG PO (20:09)
[2025-01-06] MEDS: DOCUSATE SOD 100 MG CAPSULE PO (21:29)
[2025-01-07 00:02] VITALS: BP 102/64; PULSE 77; RESP 16; TEMP 36.8; O2SAT 96
[2025-01-07] MEDS: Ampicillin Inj 2,000 MG in SODIUM CHLORIDE 0.9% (POP) 100 ML 100 MG IV ×2 (01:34→05:43)
[2025-01-07 04:04] VITALS: BP 103/67; PULSE 79; RESP 16; TEMP 36.6; O2SAT 95
--- NOTE | 2025-01-07 08:23 | PD.LDPPPRG ---
Subjective Subjective Interval history: No complaints of pain. No dizziness. Bonding Exam Vital Signs Temp Pulse Resp BP Pulse Ox O2 Del Method 97.8 F 79 16 103/67 95 Room Air 01/07/25 04:04 01/07/25 04:04 01/07/25 04:04 01/07/25 04:04 01/07/25 04:04 01/07/25 04:04 Narrative Exam Vital signs stable afebrile. Breasts are soft. Fundus firm below umbilicus. Perineum intact no swelling. Small lochia. Uterus well involuted below the umbilicus. 2+ DTRs. Negative Homans' sign Objective Labs 01/06/25 18:09 Labs: Laboratory Results - last 24 hr 01/06/25 18:09 WBC 16.2 H RBC 3.67 L Hgb 8.7 L Hct 27.0 L MCV 74 L MCH 23.7 L MCHC 32.2 RDW Std Deviation 44.4 Plt Count 354 D Neut % (Auto) 82 H Lymph % (Auto) 10 [place] % (Auto) 7 Eos % (Auto) 0 Baso % (Auto) 0 Neut # (Auto) 13.3 H Lymph # (Auto) 1.6 [place] # (Auto) 1.2 H Eos # (Auto) 0.0 Baso # (Auto) 0.0 Immature Gran # (Auto) 0.11 H Absolute Nucleated RBC 0.00 Immature Gran % 1 H Nucleated RBC % 0 Assessment & Plan Assessment Comment Assessment comment: 24 hr pp Plan Comment Plan Comment: Discharge home with baby. Continue vitamins and iron. Increase iron foods. Increase fluids. Discussed danger signs symptoms and signs of infection. I discussed ER precautions with parameters. No sex. Discussed care of vaginal lacerations. No sex for 6 weeks and return in 3 weeks Time Spent With Patient Time: Total time spent is greater than 50% in coordination of care (as documented) at patient's floor/unit and/or counseling patient:
--- NOTE | 2025-01-07 08:25 | PD.LDDS ---
DS: Providers Provider Date of admission: 01/05/25 23:03 Primary care physician: Physician No Primary/Family Admitting Provider: Ashely Araiza CNM Attending Provider on Admission: Ed Farrell MD Consults: 01/06/25 11:11 Referral Routine Comment: Attending Provider on DC: Ashely Araiza CNM Discharging Provider: Ashely Araiza CNM DS: Diagnosis Problem List Completed Was Problem List Reviewed/Reconciled?: Yes Summary/Hosp Course Brief History: 24-year-old 2 para 1 with complaints of contractions admitted to labor and delivery. Patient has been followed [facility] at [facility] and [facility] medical clinic. Last. April 03, 2024. Estimated due date January 08, 2025. Patient has had an uneventful . She has had several ultrasound sound showing a normal anatomy. Patient is A+, antibody screen negative, RPR nonreactive, rubella, hepatitis B negative, hep C negative, HIV negative, GC and Chlamydia are negative. Her 1 hour was normal. GBS negative. She had negative NIPT and carrier screens. Denies social habits. Denies surgery. Denies chronic illness. Peripartum Data Delivery Method: Normal Vaginal Delivery Episiotomy Description: None Laceration Description: yes (vaginal) Time Spent with Patient Time attestation: Total time spent providing and/or coordinating discharge services: Exam Vital Signs Temp Pulse Resp BP Pulse Ox O2 Del Method 97.8 F 79 16 103/67 95 Room Air 01/07/25 04:04 01/07/25 04:04 01/07/25 04:04 01/07/25 04:04 01/07/25 04:04 01/07/25 04:04 Discharge Plan Plan Patient Disposition: HOME (Self Care) Patient condition on transfer: Stable Prescriptions/Referrals Prescriptions/Med Rec: No Action 28-800 mg-mcg tablet 1 tab PO DAILY Qty: 60 2RF ferrous sulfate 325 mg (65 mg iron) tablet 325 mg PO BID Qty: 60 2RF Referrals: No Primary/Family,Physician [Primary Care Provider] - Patient/Caregiver Discharge Instructions Discharge Activity: resume usual activities Print Language: Latvian Activity Restrictions/Additional Instructions: Discharge home with baby. Continue vitamins and iron. Tylenol ibuprofen for pain. Discussed danger signs and symptoms and ER precautions with parameters. I discussed signs symptoms of infection. Increase fluids. No sex. Discussed care of vaginal laceration. Return in 3 weeks visit Stand Alone Forms: [facility] Award Info., Patient Portal Info Letter Discharge Order Discharge Orders: Discharge (Routine); Ordered 01/07/25 Ordered By: Ashely Araiza Planned Discharge Date 01/07/25
[2025-01-07 08:45] VITALS: BP 106/72; PULSE 80; RESP 16; TEMP 36.9; O2SAT 96
[2025-01-07] MEDS: DOCUSATE SOD 100 MG CAPSULE PO (09:30)
[2025-01-07] MEDS: FERRIC SOD GLUC INJ 125 MG in SODIUM CHLORIDE 0.9% 100 ML 110 MG IV (09:30)
== END 2025-01-07 13:40 | disposition home or self-care (01) | DRG 807 ==
LOC: S4SX 01-06 10:18 → S4NX 01-06 12:43
PROVIDERS: Admitting Provider Advanced Practice Midwife; Visit Provider Obstetrics & Gynecology
DX: O71.82 Other specified trauma to perineum and vulva (principal); Z37.0 Single live birth; Z3A.39 39 weeks gestation of pregnancy
CPT/HCPCS: 36415; 85025; 86780; 86850; 86900; 86901; J0131; J0290; J1580; J2590; J2795; J2916; J3010; J3490; J7030; J7050; J7120; S0191; A9270

== ENCOUNTER 2025-01-27 13:36 | Outpatient (AMB) | payer BC, MEDICAID, SELFPAY ==
--- NOTE | 2025-01-27 13:50 | AMB.OBPP ---
Vital Signs 01/27/25 13:51 Height 1.57 m Height Method Stated Weight 70.307 kg Weight Measurement Method Standing Scale BMI 28.5 BP 123/74 Blood Pressure Source Automatic Cuff Blood Pressure Location Right Upper Arm Position Sitting Respiration 17 Pulse 98 Pulse Source Monitor Temp 97.7 F Temp Source Temporal Artery Scan Pulse Oximetry (%) 98 Oxygen Delivery Method Room Air Allergies/Home Meds Allergies & Medications Allergies No Known Allergies Allergy (Verified 01/27/25 13:52) Medication Reconciliation ferrous sulfate 325 mg (65 mg iron) tablet 325 mg PO BID #60 tabs 11/19/24 [Rx Confirmed 01/27/25] vits no.133-ferrous fumarate 28 mg-folic acid 800 mcg tablet () 1 tab PO DAILY #60 tabs 11/19/24 [Rx Confirmed 01/27/25] Intake Visit Data Collection New Patient or Established: Established Patient (seen at [facility] within 3 years) Reason for Visit:: 3WEEKS Seen by Clinical Staff ONLY (RN/MA): No Materials Planner Required: No Do You Feel Safe at Home: Yes Authorities Contacted: N/A PCP or OBGYN visit in last 3 months: Yes Date of Last PCP or OBGYN visit: 01/07/25 Hx Now: No Are you currently on any form of Control: No Pain Present Currently: No Pain Scale Used: Joyner-Curiel/Numerical Pain scale:: 0 Smoking Status Smoking Status: Never smoker 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: Past Medical History Past Medical History: No Hx Neurological Disorders, No Hx Breast Cancer, No Hx Cardiac Disorders, No Hx Cancer, Yes Hx Blood Disorders, Yes Hx Anemia, No Hx Gastrointestinal Disorders, No Hx Renal Disease, No Hx Diabetes Mellitus Type 1, No Hx Diabetes Mellitus Type 2, No Hx Tubal Ligation and No Hx Hysterectomy Questionnaires Covid-19 Vaccine Questionnaire Has patient been vacinated for Covid-19 Have you been vacinated for Covid-19: Yes Social History Living Situation History Marital Status: Life Partner Lives With: Family Housing: Apartment Tobacco History Smoking Status: Never smoker Second Hand Smoke Exposure: Yes Alcohol History Alcohol Intake: Never Substance Use History Substance Use: marijuana Domestic Abuse History Do You Feel Safe at Home: Yes EPDS - PP Depression Screening [place] Pospartum Depression Screen I have been able to laugh and see the funny side of things: (0) As much as I always could I have looked forward with enjoyment to things: (0) As much as I ever did I have blamed myself unnecessarily when things went wrong: (0) No, never I have been anxious or worried for no good reason: (0) No, not at all I have felt scared or panicky for no very good reason: (0) No, not at all Things have been getting on top of me: (0) No, I have been coping as well as ever I have been so unhappy that I have had difficulty sleeping: (0) No, not at all I have felt sad or miserable: (0) No, not at all I have been so unhappy that I have been crying: (0) No, never The thought of harming myself has occurred to me: (0) Never EPDS completed yes Care OB Visit Log OB Flowsheet Initial Weight: Not Recorded Date <del>?</del> EGA Weight BP Alb Glu CTX Pres Fundal ht FHR Mov Dilation Station Effacement Hx Notes Visit Note 10/09/24 <del>?</del> 26w 6d 69.57 kg 106/71 absent unknown 26 156 active 24-year-old 2 1 here for initial OB appointment. Patient reports movement. Denies signs or symptoms of labor. Patient is a transfer of care from [facility]. She we will going get her records. I ordered third trimester labs today. And will do a follow-up ultrasound for growth at 32 weeks. Patient is taking vitamins. I discussed labor precautions with patient and I discussed diet and weight and regular exercise. Patient had +1 protein today in the urine and +1 leuk but nitrites were negative so I advised her to drink cranberry juice and lots of fluids 24-year-old 2 1 here for initial OB appointment. Patient reports movement. Denies signs or symptoms of labor. Patient is a transfer of care from [facility]. 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 I ordered third trimester labs today. And will do a follow-up ultrasound for growth at 32 weeks. Patient is taking vitamins. I discussed labor precautions with patient and I discussed diet and weight and regular exercise. Patient had +1 protein today in the urine and +1 leuk but nitrites were negative so I advised her to drink cranberry juice and lots of fluids 11/06/24 <del>?</del> 30w 6d 72.631 kg 107/67 absent unknown 30 156 active Reports good movement. Denies any contractions. No leaking, no bleeding. Tdap given today. Schedule ultrasound for growth. I reviewed diet and weight gain with patient and talked about kick count. Return in 2 weeks OB check. 11/19/24 <del>?</del> 32w 5d 73.198 kg 110/72 absent cephalic 32 135 active No OB complaints, fetus active, . compliant with PNV discuss PTL precaution, discuss FKC biD. Increase fluid, continue PNV, RTC 1 week, sono for growth pending, start iron bid 12/09/24 <del>?</del> 35w 4d 75.353 kg 116/80 occasional cephalic 36 135 active occ uc and pressure. denies bleeding, UC and LOF. fetus active GBS today. discuss labor precaution, fkc bid discuss ER precaution. rtc for OBC 12/31/24 <del>?</del> 38w 5d 78.528 kg 119/81 occasional cephalic 38 135 active fetus active, denies uc, no leaking or bleeding. SVE: LCP/soft, + yeast. Discuss dates with patient, IOL 01/10/25 GBS-, + yeast. diflucan 150 x3, discuss labor precaution, fkc bid, increase fluids. IOL 01/10/25, fkc bid FABIAN Calculator Estimated Delivery Date Method Current WG Current Estimate 01/09/25 Ultrasound #2 42w 4d Other Estimates 01/08/25 LMP (Certain) 42w 5d 01/08/25 Ultrasound #1 42w 5d Notes Visit Date: 12/09/24 Last Updated by: Ashely Araiza CNM 24 yo . LMP 04/03/24. EDC 12/29/24. A+,abs-, rpr;;nr, rub imm, hbsag-, hiv-, hc-, GC/CT-, 1 hr gtt wnl Visit Date: 11/19/24 Last Updated by: Ashely Araiza CNM #rd tri labs WNL. 04/24 Visit Date: 11/06/24 Last Updated by: Ashely Araiza CNM 24yo . LMP 04/03/24. EDC 01/08/25. A+,abs-,rpr;;nr, rub imm. HBSAG-,HIV-,GC/CT-,NIPT and carrier screen- HPI Interval History: 24-year-old 2 para 2 for 2-week . Patient had a vaginal delivery January 08, 2025. A baby girl. 6-8. Patient is breast-feeding. Siblings adjusting. Father the baby involved. Good health at home. Denies depression. Feels happy. Patient thinks the father the baby might get a vasectomy. No interval complaints. Was or delivery considered high risk: No Delivery type: vaginal Was labor induced: no Gestational age at delivery (weeks): 39.4 Delivery date: 01/08/25 Delivering provider: julio cesar araiza Delivery complications: No Is patient infant: Yes Is patient sexually active: No Contraception planned: unsure/vasectomy Review of Systems Review of Systems ROS limited to current 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 complaints: Yes Exam Narrative Physical exam: Normal heart rate and rhythm. Lungs clear no wheezes. Abdomen is soft nontender. Uterus well involuted. Perineum is intact no lacerations. No swelling. Small lochia. Negative Homans' sign. 2+ DTRs. No edema no swelling. Breasts are soft General Limitations: no limitations General Appearance: alert, in no apparent distress, comfortable, cooperative, healthy appearing, well developed and well groomed Head Head exam: atraumatic, normocephalic and normal inspection Neck Neck exam: Present normal inspection, full ROM and trachea midline Chest Chest inspection: Present normal inspection and symmetric chest wall rise Resp Respiratory exam: Present normal lung sounds bilaterally Card Cardiovascular exam: Present regular rate, normal rhythm and normal heart sounds Abdominal Abdominal exam: Present soft and normal bowel sounds Speculum exam: Present normal speculum exam Bimanual exam: Present normal bimanual exam Psych Psychiatric exam: Present normal affect and normal mood Office Procedures OB Clinic LOC & Office Proc's Nursing/Assessment Patient Status: Established Patient OB Clinic Nursing Assessment: Medication Reconciliation, Update PMH in EMR and Vital Signs OB Clinic Coordination of Care: Complex Care and Chronic Disease 1-5, Consent,records obtained, informed consent, Education Simp Pt/Fam and Staff clarify orders Established Patient Charge Established Patient Point Assignment: 85 Post Follow-up Visit Post Follow up Visit: Yes Assessment & Plan Diagnosis / Problem List (1) 2 weeks follow-up: Status: Acute Plan No sex. Comfort measures for vaginal laceration. Increase fluids. Continue prenatals. Reviewed latching and breast-feeding positions. Follow-up in 3 weeks for control. Care Reviewed delivery summary and any complications: Yes Uterus involuted to: 3 below umb Perineal / incision healing noted: Yes Screened for depression: Yes Depression counseling provided: No Discussed family planning & contraception: Yes Contraception planned: unsure/vasectomy Counseling on safe resumption of sexual activity: Yes Counseling on gradual excercise: Yes Discussed and concerns (describe), provided support: Yes Referred to photo specialist: No Counseled on good nutrition, hydration, and self care: Yes Reviewed vaccine status: No Chronic & current problems reconciled on problem list: Yes Infant care discussed; questions answered: feeding Follow up: routine/prn
[2025-01-27 13:51] VITALS: BP 123/74; PULSE 98; RESP 17; TEMP 36.5; O2SAT 98; BMI 28.5
== END 2025-01-27 14:01 | disposition home or self-care (01) ==
LOC: HODSOBC 13:36
PROVIDERS: Supervising Provider Advanced Practice Midwife; Visit Provider Advanced Practice Midwife
DX: Z39.2 Encounter for routine postpartum follow-up (principal); Z39.1 Encounter for care and examination of lactating mother
CPT/HCPCS: Z1038

== ENCOUNTER 2025-02-26 11:13 | Outpatient (AMB) | payer BC, MEDICAID, SELFPAY ==
[2025-02-26 11:21] VITALS: BP 128/82; PULSE 68; RESP 17; TEMP 36.7; O2SAT 98; BMI 29.9
--- NOTE | 2025-02-26 11:21 | AMBOBPPN_ITS ---
Vital Signs 02/26/25 11:21 Height 1.57 m Height Method Stated Weight 73.652 kg Weight Measurement Method Standing Scale BMI 29.9 BP 128/82 Blood Pressure Source Automatic Cuff Blood Pressure Location Right Upper Arm Position Sitting Respiration 17 Pulse 68 Pulse Source Monitor Temp 98.0 F Temp Source Temporal Artery Scan Pulse Oximetry (%) 98 Oxygen Delivery Method Room Air Allergies/Home Meds Allergies & Medications Allergies No Known Allergies Allergy (Verified 02/26/25 11:22) Intake Visit Data Collection New Patient or Established: Established Patient (seen at [facility] within 3 years) Reason for Visit:: Seen by Clinical Staff ONLY (RN/MA): No Jalousie Installer Required: No Do You Feel Safe at Home: Yes Authorities Contacted: N/A PCP or OBGYN visit in last 3 months: Yes Date of Last PCP or OBGYN visit: 01/27/25 Hx Now: No Are you currently on any form of Control: No Pain Present Currently: No Pain Scale Used: Joyner-Curiel/Numerical Pain scale:: 0 Smoking Status Smoking Status: Never smoker SOLUTION SPECIALIST: Past Medical History Past Medical History: No Hx Neurological Disorders, No Hx Breast Cancer, No Hx Cardiac Disorders, No Hx Cancer, Yes Hx Blood Disorders, Yes Hx Anemia, No Hx Gastrointestinal Disorders, No Hx Renal Disease, No Hx Diabetes Mellitus Type 1, No Hx Diabetes Mellitus Type 2, No Hx Tubal Ligation and No Hx Hysterectomy Questionnaires Covid-19 Vaccine Questionnaire Has patient been vacinated for Covid-19 Have you been vacinated for Covid-19: No Social History Living Situation History Marital Status: Life Partner Lives With: Family Housing: Apartment Tobacco History Smoking Status: Never smoker Second Hand Smoke Exposure: Yes Alcohol History Alcohol Intake: Never Substance Use History Substance Use: marijuana Domestic Abuse History Do You Feel Safe at Home: Yes EPDS - PP Depression Screening [place] Pospartum Depression Screen I have been able to laugh and see the funny side of things: (0) As much as I always could I have looked forward with enjoyment to things: (0) As much as I ever did I have blamed myself unnecessarily when things went wrong: (0) No, never I have been anxious or worried for no good reason: (0) No, not at all I have felt scared or panicky for no very good reason: (0) No, not at all Things have been getting on top of me: (0) No, I have been coping as well as ever I have been so unhappy that I have had difficulty sleeping: (0) No, not at all I have felt sad or miserable: (0) No, not at all I have been so unhappy that I have been crying: (0) No, never The thought of harming myself has occurred to me: (0) Never EPDS completed yes Care OB Visit Log OB Flowsheet Initial Weight: Not Recorded Date -?-?-?-?-?-?-?-?-?-?-?-?- EGA Weight BP Alb Glu CTX Pres Fundal ht FHR Mov Dilation Station Effacement Hx Notes Visit Note 10/09/24 -?-?-?-?-?-?-?-?-?-?-?-?- 26w 6d 69.57 kg 106/71 absent unknown 26 156 active 24-year-old 2 1 here for initial OB appointment. Patient reports movement. Denies signs or symptoms of labor. Patient is a transfer of care from [facility]. She we will going get her records. I ordered third trimester labs today. And will do a follow-up ultrasound for growth at 32 weeks. Patient is taking vitamins. I discussed labor precautions with patient and I discussed diet and weight and regular exercise. Patient had +1 protein today in the urine and +1 leuk but nitrites were negative so I advised her to drink cranberry juice and lots of fluids 24-year-old 2 1 here for inamberly shukla OB appointment. Patient reports movement. Denies signs or symptoms of labor. Patient is a transfer of care from [facility]. 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 I ordered third trimester labs today. And will do a follow-up ultrasound for growth at 32 weeks. Patient is taking vitamins. I discussed labor precautions with patient and I discussed diet and weight and regular exercise. Patient had +1 protein today in the urine and +1 leuk but nitrites were negative so I advised her to drink cranberry juice and lots of fluids 11/06/24 -?-?-?-?-?-?-?-?--?-?-?-?- 30w 6d 72.631 kg 107/67 absent unknown 30 156 active Reports good movement. Denies any contractions. No leaking, no bleeding. Tdap given today. Schedule ultrasound for growth. I reviewed diet and weight gain with patient and talked about kick count. Return in 2 weeks OB check. 11/19/24 -?-?-?-?-?-?-?-?-?--?-?-?- 32w 5d 73.198 kg 110/72 absent cephalic 32 135 active No OB complaints, fetus active, . compliant with PNV discuss PTL precaution, discuss FKC biD. Increase fluid, continue PNV, RTC 1 week, sono for growth pending, start iron bid 12/09/24 -?-?-?-?-?-?-?-?-?-?-?-?- 35w 4d 75.353 kg 116/80 occasional cephalic 36 135 active occ uc and pressure. denies bleeding, UC and LOF. fetus active GBS today. discuss labor precaution, fkc bid discuss ER precaution. rtc for OBC 12/31/24 -?-?-?-?-?-?-?-?-?-?-?-?- 38w 5d 78.528 kg 119/81 occasional cephalic 38 135 active fetus active, denies uc, no leaking or bleeding. SVE: LCP/soft, + yeast. Discuss dates with patient, IOL 01/10/25 GBS-, + yea st. diflucan 150 x3, discuss labor precaution, fkc bid, increase fluids. IOL 01/10/25, fkc bid FABIAN Calculator Estimated Delivery Date Method Current WG Current Estimate 01/09/25 Ultrasound #2 46w 6d Other Estimates 01/08/25 LMP (Certain) 47w 0d 01/08/25 Ultrasound #1 47w 0d Notes Visit Date: 12/09/24 Last Updated by: Ashely Araiza CNM 24 yo . LMP 04/03/24. EDC 12/29/24. A+,abs-, rpr;;nr, rub imm, hbsag-, hiv-, hc-, GC/CT-, 1 hr gtt wnl Visit Date: 11/19/24 Last Updated by: Ashely Araiza CNM #rd tri labs WNL. 04/24 Visit Date: 11/06/24 Last Updated by: Ashely Araiza, GAL 24yo . LMP 04/03/24. EDC 01/08/25. A+,abs-,rpr;;nr, rub imm. HBSAG-,HIV-,GC/CT-,NIPT and carrier screen- HPI Interval History: 24-year-old 2 para 2 for 6-week . Patient had a vaginal January 06, 2025. A baby girl she weighed 7 pounds 6 ounces and she is breast- feeding. Sibling is adjusting. And patient has good family support from the father the baby and her family. They recently had unprotected sex. The plan for contraception right now is condoms or withdrawal. And patient has no pos tpartum complaints Was or delivery considered high risk: No Delivery type: vaginal Was labor induced: no Gestational age at delivery (weeks): 39 Delivery date: 01/06/25 Delivering provider: lisa Delivery complications: No Is patient : Yes Is patient sexually active: Yes Contraception planned: condom or withdraw Review of Systems Review of Systems ROS limited to current SOLUTION SPECIALIST complaints: Yes Exam Narrative Physical exam: Normal heart rate and rhythm. Lungs clear no wheezes. Abdomen is soft nontender. Uterus well involuted. Perineum is intact no lacerations. No swelling. Small lochia. Negative Homans' sign. 2+ DTRs. No edema no swelling. Breasts are soft General Limitations: no limitations General Appearance: alert, in no apparent distress, comfortable, cooperative, healthy appearing, well developed and well groomed Head Head exam: atraumatic, normocephalic and normal inspection Resp Respiratory exam: Present normal lung sounds bilaterally Card Cardiovascular exam: Present regular rate, normal rhythm and normal heart sounds Abdominal Abdominal exam: Present soft and normal bowel sounds Extremities Extremities exam: Present normal inspection and full ROM Psych Psychiatric exam: Present normal affect and normal mood Office Procedures OB Clinic LOC & Office Proc's Nursing/Assessment Patient Status: Established Patient OB Clinic Nursing Assessment: Medication Reconciliation, Update PMH in EMR and Vital Signs OB Clinic Coordination of Care: Complex Care and Chronic Disease 1-5, Consent,records obtained, informed consent, Education Simp Pt/Fam and Staff clarify orders Established Patient Charge Established Patient Point Assignment: 85 Post Follow-up Visit Post Follow up Visit: Yes Assessment & Plan Diagnosis / Problem List (1) Routine Follow-Up: (2) 6 weeks follow-up: Status: Acute Plan Reviewed latching and breast-feeding positions. Discussed compliance with barrier method and withdrawal. Continue prenatals. Increase fluids. Return in 2 years for Pap. And patient will return as needed if she decides to change contraceptive method. Care Reviewed delivery summary and any complications: Yes Uterus involuted to: 3 below umb Perineal / incision healing noted: Yes Screened for depression: Yes Depression counseling provided: No Discussed family planning & contraception: Yes Contraception planned: condom or withdraw Counseling on safe resumption of sexual activity: Yes Counseling on gradual excercise: Yes Discussed and concerns (describe), provided support: Yes Referred to automotive glass specialist: No Counseled on good nutrition, hydration, and self care: Yes Chronic & current problems reconciled on problem list: Yes Infant care discussed; questions answered: feeding and sleep Follow up: routine/prn Additional counseling & anticipatory guidance provided: RTC as needed for control and pap (FP) Tobacco Smoking Status: Never smoker
== END 2025-02-26 11:51 | disposition home or self-care (01) ==
LOC: HODSOBC 11:13
PROVIDERS: Supervising Provider Advanced Practice Midwife; Visit Provider Advanced Practice Midwife
DX: Z39.2 Encounter for routine postpartum follow-up (principal); Z39.1 Encounter for care and examination of lactating mother
CPT/HCPCS: 59430; 99213; G0463